=== PATIENT | female | born 1955 | race Caucasian/White ===

== ENCOUNTER 2020-03-26 17:38 | Inpatient (IN) | payer OTHER, MEDICARE ==
[~2020-03-26] VITALS: Ht 154.9 cm; Wt 97.3 kg
[~2020-03-26 17:38] MED LIST: AMOXICILLIN500 MG PO; ATENOLOL100 MG PO; CYMBALTA 30MG C30 MG PO; CYMBALTA60 MG PO; DIFLUCAN150 MG PO; DUONEB 2.5-0.5M1 AMP NEB; FEOSOL325 MG PO; GABAPENTIN600 MG PO; GLIMEPIRIDE4 MG PO; GLUCOPHAGE1000 MG PO; JANUVIA50 MG PO; K-DUR20 MEQ PO; LASIX40 MG PO; LEVAQUIN500 MG PO; LIDOCAINE 5% P1 EACH TOP; LIPITOR 10MG TA10 MG PO; LISINOPRIL-HCT1 EAC2 PO; MEDROL 4MG DOSEP4 MG PO; METFORMIN HCL500 MG PO; METHOCARBAMOL750 MG PO; MOBIC7.5 MG PO; NEBULIZER UNIT NEB; NEURONTIN300 MG PO; OXYCODONE-ACET1 EACH PO; PERCOCET 10-321 EACH PO; PERCOCET 5-3251 EACH PO; PREDNISONE 20MG20 MG PO; PRILOSEC20 MG PO; PRINIVIL10 MG PO; ROBAXIN750 MG PO; SKELAXIN800 MG PO; TENORMIN50 MG PO; TESSALON PERLE100 M1 PO; TRADJENTA5 MG PO; TRAMADOL HCL50 MG PO; UROCIT-K10 MEQ PO; VOLTAREN **OUT50 MG PO; WELLBUTRIN SR150 MG PO; ZOFRAN4 MG PO
[2020-03-26 21:05] LABS: BASOPHIL 1.2 % (0-2); EOSINOPHIL 10.1 % (0-7); HCT 34.3 % (37.0-47.0); HGB 9.9 g/dl (12.5-16.0); LYMPHOCYTE 22.3 % (15-48); MCH 23.3 pg (25.0-31.0); MCHC 28.9 g/dL (32.0-36.0); MCV 80.7 fL (78.0-100.0); MONOCYTE 10.2 % (0-12); MPV 10.2 fL (6.0-9.5); NEUTROPHIL 55.4 % (41-80); NRBC 0.3; PLT 529 K/uL (150-400); RBC 4.25 M/uL (4.20-5.40); RDW 21.5 % (11.5-14.0); WBC 7.6 K/uL (4.0-10.5)
[2020-03-26 21:15] LABS: ALBUMIN 2.8 g/dL (3.4-5.0); BILIRUBIN - TOTAL 0.2 mg/dL (0.2-1.0); BUN/CREAT RATIO (CALC) 23.8 RATIO; CREATININE 0.63 mg/dL (0.51-0.95); GLOBULIN (CALCULATION) 5.1 g/dL; POTASSIUM 4.1 mmol/L (3.5-5.1); TOTAL PROTEIN 7.9 g/dL (6.4-8.2)
[2020-03-27] MEDS ORDERED: NEURONTIN600 MG PO (03:01)
[2020-03-27] MEDS ORDERED: PERCOCET 10-321 EACH PO (03:01)
[2020-03-27 07:39] LABS: BASOPHIL 0.9 % (0-2); EOSINOPHIL 0.4 % (0-7); HCT 32.5 % (37.0-47.0); LYMPHOCYTE 17.9 % (15-48); MCH 22.7 pg (25.0-31.0); MCHC 27.7 g/dL (32.0-36.0); MCV 82.1 fL (78.0-100.0); MONOCYTE 1.7 % (0-12); NEUTROPHIL 78.4 % (41-80); NRBC 0; PLT 537 K/uL (150-400); RBC 3.96 M/uL (4.20-5.40); RDW 21.2 % (11.5-14.0); WBC 4.6 K/uL (4.0-10.5)
[2020-03-27 08:01] LABS: BUN/CREAT RATIO (CALC) 24.6 RATIO; CREATININE 0.61 mg/dL (0.51-0.95); POTASSIUM 4.9 mmol/L (3.5-5.1)
[2020-03-28 02:06] LABS: BILIRUBIN NEGATIVE (NEGATIVE); BLOOD NEGATIVE Ery/uL (NEGATIVE); CLARITY CLEAR (CLEAR); COLOR YELLOW (YELLOW); GLUCOSE (U) 1+ mg/dL (NORMAL); LEUKOCYTES NEGATIVE Leu/uL (NEGATIVE); NITRITE NEGATIVE (NEGATIVE); PROTEIN NEGATIVE (NEGATIVE); SPECIFIC GRAVITY >=1.030 (1.001-1.030); UROBILINOGEN 0.2 mg/dL (0.2-1.0)
--- NOTE | 2020-03-29 17:16 | NUR ---
03/29/20 02 has been ordered from [facility] in anticipation of discharge for 03/30/20. [facility] reports plans to deliver on 03/29/20. Please advise patient to call [facility] upon return home for delivery of concentrator. Report given to UNRULY Ellis RN.
[2020-03-30 04:39] LABS: BASOPHIL 0.8 % (0-2); EOSINOPHIL 1.4 % (0-7); HCT 29.9 % (37.0-47.0); HGB 8.5 g/dl (12.5-16.0); LYMPHOCYTE 26.5 % (15-48); MCH 23.2 pg (25.0-31.0); MCHC 28.4 g/dL (32.0-36.0); MCV 81.7 fL (78.0-100.0); MONOCYTE 10.9 % (0-12); MPV 9.9 fL (6.0-9.5); NRBC 0; PLT 513 K/uL (150-400); RBC 3.66 M/uL (4.20-5.40); RDW 20.7 % (11.5-14.0); WBC 8.5 K/uL (4.0-10.5)
[2020-03-30 05:00] LABS: BUN/CREAT RATIO (CALC) 27.8 RATIO; CREATININE 0.72 mg/dL (0.51-0.95); POTASSIUM 3.7 mmol/L (3.5-5.1)
[2020-03-30] MEDS ORDERED: CEFDINIR300 MG PO (10:23)
[2020-03-30] MEDS ORDERED: PREDNISONE 20MG20 MG PO (10:23)
[2020-04-22] MEDS ORDERED: OXYCODONE-ACET1 EACH PO (16:56)
[2020-06-20] MEDS ORDERED: OXYCODONE-ACET1 EACH PO ×2 (11:07)
[2020-06-20] MEDS ORDERED: OXYCODON-ACETA1 EAC1 PO (11:07)
[2020-06-20] MEDS ORDERED: GABAPENTIN600 MG PO (11:35)
[2020-08-21] MEDS ORDERED: OXYCODON-ACETA1 EAC1 PO (18:05)
[2020-08-21] MEDS ORDERED: GABAPENTIN600 MG PO (18:05)
[2020-08-21] MEDS ORDERED: OXYCODONE-ACET1 EACH PO (18:05)
[2020-09-17] MEDS ORDERED: OXYCODONE-ACET1 EACH PO (16:15)
[2020-09-17] MEDS ORDERED: TIZANIDINE HCL2 MG PO (16:15)
== END 2020-03-30 16:42 | disposition home or self-care (01) | DRG 193 ==
LOC: FER 17:38 → FTCU 03-27 00:25 → FMS 03-29 17:56
PROVIDERS: Nurse Practitioner; Nurse Practitioner Family; ADMIT Internal Medicine
DX: J18.9 Pneumonia, unspecified organism (principal); J96.01 Acute respiratory failure with hypoxia; E11.40 Type 2 diabetes mellitus with diabetic neuropathy, unspecified; G89.4 Chronic pain syndrome; Z51.5 Encounter for palliative care; Z20.822 Contact with and (suspected) exposure to COVID-19; K21.9 Gastro-esophageal reflux disease without esophagitis; M19.90 Unspecified osteoarthritis, unspecified site; I10 Essential (primary) hypertension; J45.909 Unspecified asthma, uncomplicated; F32.9 Major depressive disorder, single episode, unspecified; G47.30 Sleep apnea, unspecified; Z90.49 Acquired absence of other specified parts of digestive tract; Z98.890 Other specified postprocedural states; Z79.84 Long term (current) use of oral hypoglycemic drugs; Z85.3 Personal history of malignant neoplasm of breast; Z88.1 Allergy status to other antibiotic agents; Z79.899 Other long term (current) drug therapy
CPT/HCPCS: 36415; 36600; 71275; 80048; 80053; 80202; 81003; 82803; 82962; 84145; 84484; 85025; 85379; 87040; 94010; 94640; 94668; J1100; J1170; J1650; J2543; J3370; J7030; J7040; J7050; J7512; Q9967; U0002

== ENCOUNTER 2021-02-20 17:45 | Emergency (ER) | payer OTHER, MEDICARE ==
[~2021-02-20 17:45] MED LIST changes: +CEFDINIR300 MG PO; +NEURONTIN600 MG PO; +NEURONTIN800 MG PO; +OXYCODON-ACETA1 EAC1 PO; +TIZANIDINE HCL2 M1 PO; +TIZANIDINE HCL2 MG PO
[2021-02-20] MEDS ORDERED: MEDROL 4MG DOSEP4 MG PO (19:16)
== END 2021-02-20 19:49 | disposition home or self-care (01) ==
LOC: FER 17:45
DX: S83.91XA Sprain of unspecified site of right knee, initial encounter (principal); I10 Essential (primary) hypertension; E11.9 Type 2 diabetes mellitus without complications; J45.909 Unspecified asthma, uncomplicated; Z88.1 Allergy status to other antibiotic agents; W19.XXXA Unspecified fall, initial encounter; Y92.009 Unspecified place in unspecified non-institutional (private) residence as the place of occurrence of the external cause
CPT/HCPCS: 73564